=== PATIENT | male | born 1995 | race Hispanic/Latino ===

== ENCOUNTER 2024-07-24 14:10 | Emergency (ER) | payer SELFPAY ==
[2024-07-24 14:11] VITALS: BP 136/95
--- NOTE | 2024-07-24 14:20 | ED.GENMED ---
History of Present Illness
<Pham Irene PA-C - Last Filed: 07/24/24 18:15>
General
Chief Complaint: Exposure-Chemical
Source: patient
Exam Limitations: none
Time Seen by Provider: 07/24/24 14:19
Nursing documentation reviewed up to this point in time: agreed with
History of Present Illness
History of Present Illness:
29-year-old male with no past medical history presents emergency department today with bilateral eye redness and irritation following chemical exposure. Patient reports that he was at work today spreading brushes with mosquito pesticide when the
wound blew and the liquid blew into his eyes. Patient states that he had pain discomfort immediately which has progressively gotten worse. Patient denies any visual loss or visual changes. Patient does wear glasses at baseline. Patient denies
any falls or any other injuries. Patient states that he had One Guard solution spray in his eyes. Patient does not currently follow with ob/gyn nurse. Patient denies any headache, nausea, vomiting, abdominal pain, tongue or lip swelling.
Review of Systems
<Pham Irene PA-C - Last Filed: 07/24/24 18:15>
Review of Systems
All Other Systems: ROS reviewed and negative except as documented in HPI and ROS
Phy Exam
<Pham Irene PA-C - Last Filed: 07/24/24 18:15>
Physical Exam
Physical Exam:
General: Patient is well appearing and in no acute distress; non-toxic
Skin: Warm and dry, no rashes or lesions
Head: Normocephalic, atraumatic
Eyes: Sclera non-icteric. EOMs intact. PERRLA. Sclera injected bilaterally. Visual acuity 20/16 bilaterally with glasses with patient states is around his baseline.
Cardiac: Regular rate
Pulm: Normal respiratory effort
Neuro: CN II-XII intact, no focal neurologic deficits.
Psychiatric: Appropriate mood and affect.
Course
<Pham Irene PA-C - Last Filed: 07/24/24 18:15>
Orders/Labs/Results
Orders:
Orders
07/24/24 14:34
Visual Acuity- Treatment ONCE
07/24/24 15:37
Fluorescein Sodium [Ful-Rupal] 3 mg .ROUTE .STK-MED ONE
Tetracaine HCl [Tetracaine 0.5% Ophthalmic Solution] 1 drop .ROUTE .STK-MED ONE
Vital Signs
Initial and Last Documented VS:
Initial Vital Signs
Temp Pulse Resp BP Pulse Ox
98.0 F 77 16 136/95 98
07/24/24 14:11 07/24/24 14:11 07/24/24 14:11 07/24/24 14:11 07/24/24 14:11
Last Documented Vital Signs
Temp Pulse Resp BP Pulse Ox
98.0 F 77 16 136/95 98
07/24/24 14:11 07/24/24 14:11 07/24/24 14:11 07/24/24 14:11 07/24/24 14:11
<Heladio Richard DO - Last Filed: 07/24/24 14:39>
Orders/Labs/Results
Orders:
Orders
07/24/24 14:34
Visual Acuity- Treatment ONCE
07/24/24 15:37
Fluorescein Sodium [Ful-Rupal] 3 mg .ROUTE .STK-MED ONE
Tetracaine HCl [Tetracaine 0.5% Ophthalmic Solution] 1 drop .ROUTE .STK-MED ONE
Vital Signs
Initial and Last Documented VS:
Initial Vital Signs
Temp Pulse Resp BP Pulse Ox
98.0 F 77 16 136/95 98
07/24/24 14:11 07/24/24 14:11 07/24/24 14:11 07/24/24 14:11 07/24/24 14:11
Last Documented Vital Signs
Temp Pulse Resp BP Pulse Ox
98.0 F 77 16 136/95 98
07/24/24 14:11 07/24/24 14:11 07/24/24 14:11 07/24/24 14:11 07/24/24 14:11
<Pham Irene PA-C - Last Filed: 07/24/24 18:15>
MDM/Problems Addressed
Differential Diagnosis Includes:
Include chemical injury, corneal abrasion, conjunctivitis
MDM/Problems Addressed:
29-year-old male presenting emergency department following chemical injury to the eyes with a mosquito solution called one guard. Based on SDS sheet review of this solution, the solution is 7.25 and it was recommended to irrigate both eyes for 15
minutes. On exam, patient has injected sclera, his eyes were irrigated with Jamison lenses. Initially, the pH of his eyes slightly basic but then after irrigation his pH normalized. I recommended follow-up with ophthalmology, and these artificial
tears to help lubricate the eyes. Patient states that he will now use eye protection at work. Patient stable for discharge.
Chronic conditions affecting care:
n/a
Acute Exacerbation and/or Progression of Chronic Illness:
n/a
<Pham Irene PA-C - Last Filed: 07/24/24 18:15>
*Pulse Oximetry
Patient hypoxic: no
*Critical Care Note
Total Time (30-74mins, 75-104mins- exclusive of procedures): Not Applicable
Data Reviewed
Review of Other/Old Records Reveals: Records (No previous ER records to review) and Discharge Summary (No discharge summaries in [facility] to review)
Source: patient and records
ED Attending Note
<Pham Irene PA-C - Last Filed: 07/24/24 18:15>
-
Portions of this chart may have been created with voice recognition software.� Occasional wrong word or��sound alike� substitutions may have occurred due to the inherent limitations of voice recognition software.
<Heladio Richard, DO - Last Filed: 07/24/24 14:39>
ED Attending Note
Patient seen and examined by attending physician: Yes
I performed the substantive portion of visit, reviewed & personally made and approve the management plan that is documented in note by myself or ROSETTE.: Yes
ED Attending Note:
I have seen and evaluated the patient with a [id number] encounter. I have spoken to the advance practicer provider and involved in the medical history, the physical exam, medical decision making.
Evaluation and management service: agree unless noted differently below.
Results interpretation: agree unless noted differently below.
Focused HPI: 29-year-old male presenting with bilateral eye irritation. Patient was spraying weeds and the wind blew the material back in his eye.
Physical exam: Both eyes scleral injected. Pupils equal reactive
Medical Decision Making: Patient has a somewhat basic pH reading anywhere from 7-7.5. Both eyes are injected. Will rinse eyes to comfort
Discharge Plan
Departure
Patient Disposition: Home (Routine Discharge)
Date of Disposition: 07/24/24
Time of Disposition: 15:13
Patient with high blood pressure during this ER visit?: Yes
Condition: Good
Discharge Problem:
Chemical exposure of eye
Instructions: Chemical Eye Injury ED, BLOOD PRESSURE
Referrals:
Castro Cosme MD [Non-Admitting Privileges] - Call in 1-3 days for appt
Stand Alone Forms: Return to Work
Activity Restrictions/Additional Instructions:
PLEASE RETURN TO THE EMERGENCY DEPARTMENT SHOULD YOU EXPERIENCE VISION LOSS, INCREASING PAIN OR SWELLING, NAUSEA, LIGHT SENSITIVITY, CHEST PAIN, SHORTNESS OF BREATH, BLEEDING FROM THE EYES, OR ANY OTHER SYMPTOMS CONCERNING TO YOU.
You can use artificial tear drops to help keep your eyes lubricated.
Please follow up with ophthalmology, please call to schedule appointment.
Interventions
Interventions:
*Risk Screen - Suicide Last Done: 07/24/24 14:11
*General Assessment Last Done: 07/24/24 14:11
*Neglect/Abuse Screening Last Done: 07/24/24 14:11
*ED COVID-19 Vaccine History Last Done: 07/24/24 14:11
*Nursing Disposition Last Done: 07/24/24 15:39
ED-EENT Assessment Last Done: 07/24/24 15:38
ED- Pulmonary Assessment Last Done: 07/24/24 15:38
ED-Skin Assessment Last Done: 07/24/24 15:38
Discharge Date and Time
Discharge Date/Time: 07/24/24 15:39
Print Language: WELSH
== END 2024-07-24 15:39 | disposition home or self-care (01) ==
LOC: EMR 14:10
PROVIDERS: EMERGENCY PHYSICIAN Student in an Organized Health Care Education/Training Program
DX: Z77.098 Contact with and (suspected) exposure to other hazardous, chiefly nonmedicinal, chemicals (principal); H57.89 Other specified disorders of eye and adnexa
CPT/HCPCS: 99283